=== PATIENT | male | born 1955 | race Caucasian/White ===

== ENCOUNTER 2017-10-31 12:50 | Observation (INO) | payer OTHER ==
[~2017-10-31] VITALS: Ht 177.8 cm; Wt 98.5 kg
[2017-10-31 14:40] LABS: HEMATOCRIT 45.4 % (38.0-50.0); HEMOGLOBIN 15.5 G/DL (12.5-16.6); MCHC 34.1 G/DL (30.0-36.0); MCV 93.8 FL (86-99); PLATELET COUNT 229 K/uL (156-360); RBC DIS.WIDTH-CV 12.5 % (11.8-14.6); RBC DIS.WIDTH-SD 43.1 % (39-53); RED BLOOD COUNT 4.84 M/uL (4.00-5.50); WHITE BLOOD COUNT 9.7 K/uL (4.1-10.2)
[2017-10-31 14:47] LABS: CHLORIDE 104 mEq/L (99-109); POTASSIUM 4.4 mEq/L (3.7-5.4); SODIUM 140 mEq/L (136-147)
[2017-10-31 14:49] LABS: GLUCOSE 91 mg/dL (70-99)
[2017-10-31 14:53] LABS: GFR ESTIMATE (CALCULATED) > 59 mL/min/ (58.99-99999); UREA NITROGEN (BUN) 13 mg/dL (9-23)
[2017-10-31 15:00] LABS: TROP-I INTERPRETATION NEGATIVE; TROPONIN-I < 0.01 ng/mL (0.0-0.30)
[2017-10-31] MEDS ORDERED: VALSARTAN80 MG PO (15:53)
[2017-10-31] MEDS ORDERED: IBUPROFEN800 MG PO (15:54)
[2017-10-31] MEDS ORDERED: MORPHINE SULFAT20 M1 PO (15:54)
[2017-10-31] MEDS ORDERED: DAILY VALUE1 EACH PO (15:55)
[2017-10-31] MEDS ORDERED: MOVANTIK12.5 MG PO (17:46)
[2017-10-31 18:14] VITALS: BP 113/77
[2017-10-31 20:48] VITALS: BP 114/75
[2017-10-31 21:12] LABS: TROP-I INTERPRETATION NEGATIVE; TROPONIN-I < 0.01 ng/mL (0.0-0.30)
[2017-10-31 23:48] VITALS: BP 106/75
[2017-11-01 04:09] VITALS: BP 108/65
[2017-11-01 04:20] LABS: TROP-I INTERPRETATION NEGATIVE; TROPONIN-I < 0.01 ng/mL (0.0-0.30)
[2017-11-01 09:10] VITALS: BP 113/74
[2017-11-01 11:19] VITALS: BP 111/65
[2017-11-01] MEDS ORDERED: PANTOPRAZOLE SO40 MG PO (14:36)
[2017-11-01] MEDS ORDERED: ASPIR-LOW81 MG PO (14:36)
[2017-11-01] MEDS ORDERED: NITROSTAT0.4 MG SL (16:18)
== END 2017-11-01 18:03 | disposition home or self-care (01) ==
LOC: EME 12:50 → EDOF 15:52 → 5WEST 15:52 → ENRESERV 15:58 → 5WEST 17:34
PROVIDERS: Internal Medicine
DX: R07.9 Chest pain, unspecified (principal); R06.09 Other forms of dyspnea; I10 Essential (primary) hypertension; K21.9 Gastro-esophageal reflux disease without esophagitis; Z82.49 Family history of ischemic heart disease and other diseases of the circulatory system; Z79.1 Long term (current) use of non-steroidal anti-inflammatories (NSAID); F17.210 Nicotine dependence, cigarettes, uncomplicated; F10.10 Alcohol abuse, uncomplicated
CPT/HCPCS: 71046; 80048; 84484; 85027; 93005; 93306; 99202; 99281; 99285; G0378; J1650